=== PATIENT | male | born 1980 | race Asian ===

== ENCOUNTER 2022-07-15 04:27 | Emergency (ER) | payer BC ==
[~2022-07-15] VITALS: Ht 162.6 cm; Wt 52.6 kg
[2022-07-15 04:30] VITALS: BP 108/77
--- NOTE | 2022-07-15 04:36 | NUR ---
pt w/c assisted to bed
--- NOTE | 2022-07-15 04:37 | NUR ---
Patient resting in bed, A/Ox4, chest rise and fall symmetrical, no s/s of distress, on monitor.
--- NOTE | 2022-07-15 04:38 | NUR ---
ER physician at bedside assessing patient.
[2022-07-15] MEDS ORDERED: NAPR-54 PO (05:04)
[2022-07-15] MEDS: IBUPROFEN 600 MG TAB PO ONE (05:07)
--- NOTE | 2022-07-15 05:20 | NUR ---
Patient resting in bed, A/Ox4, chest rise and fall symmetrical, no c/o pain or s/s of distress, on monitor.
[2022-07-15 05:24] VITALS: BP 112/85
== END 2022-07-15 05:28 | disposition home or self-care (01) ==
LOC: MED 04:27
DX: S90.31XA Contusion of right foot, initial encounter (principal); Z79.899 Other long term (current) drug therapy; X58.XXXA Exposure to other specified factors, initial encounter; Y93.89 Activity, other specified; Y92.89 Other specified places as the place of occurrence of the external cause; Y99.8 Other external cause status
CPT/HCPCS: 73630; 99283; Q0092